=== PATIENT | female | born 1970 | race Caucasian/White ===

== ENCOUNTER → 2023-12-11 11:08 | Outpatient (REF) | payer BC, SELFPAY | LOC: WDC 11:08 | PROVIDERS: ATTENDING PHYSICIAN Obstetrics & Gynecology; FAMILY PHYSICIAN Nurse Practitioner Adult Health | DX: Z12.31 Encounter for screening mammogram for malignant neoplasm of breast (principal) | CPT/HCPCS: 77063; 77067 ==

== ENCOUNTER → 2024-07-10 20:14 | Outpatient (REF) | payer BC, SELFPAY | LOC: MRI 3T 20:14 | PROVIDERS: ATTENDING PHYSICIAN Obstetrics & Gynecology; FAMILY PHYSICIAN Family Medicine | DX: Z15.01 Genetic susceptibility to malignant neoplasm of breast (principal); Z80.3 Family history of malignant neoplasm of breast | CPT/HCPCS: 77049; A9585 ==

== ENCOUNTER 2024-08-11 11:23 | Outpatient (RCR) | payer SELFPAY | END 2024-08-11 23:59 | disposition home or self-care (01) | LOC: RPT 11:23 | PROVIDERS: ATTENDING PHYSICIAN Internal Medicine; FAMILY PHYSICIAN Family Medicine | DX: M62.838 Other muscle spasm (principal); R25.2 Cramp and spasm; Z73.6 Limitation of activities due to disability; K58.1 Irritable bowel syndrome with constipation | CPT/HCPCS: 97162; 97530 ==

== ENCOUNTER 2024-09-16 18:15 | Outpatient (RCR) | payer SELFPAY | END 2024-09-16 23:59 | disposition home or self-care (01) | LOC: RPT 18:15 | PROVIDERS: ATTENDING PHYSICIAN Internal Medicine; FAMILY PHYSICIAN Family Medicine | DX: M62.838 Other muscle spasm (principal); R25.2 Cramp and spasm; Z73.6 Limitation of activities due to disability; K58.1 Irritable bowel syndrome with constipation | CPT/HCPCS: 97110 ==

== ENCOUNTER 2024-10-20 12:39 | Outpatient (RCR) | payer SELFPAY | END 2024-10-20 23:59 | disposition home or self-care (01) | LOC: RPT 12:39 | PROVIDERS: ATTENDING PHYSICIAN Internal Medicine; FAMILY PHYSICIAN Family Medicine | DX: M62.838 Other muscle spasm (principal); R25.2 Cramp and spasm; Z73.6 Limitation of activities due to disability; K58.1 Irritable bowel syndrome with constipation | CPT/HCPCS: 97110 ==

== ENCOUNTER → 2025-01-08 18:53 | Outpatient (REF) | payer BC, SELFPAY | LOC: WDC 18:53 | PROVIDERS: ATTENDING PHYSICIAN Obstetrics & Gynecology; FAMILY PHYSICIAN Family Medicine | DX: Z12.31 Encounter for screening mammogram for malignant neoplasm of breast (principal); Z15.01 Genetic susceptibility to malignant neoplasm of breast; Z80.3 Family history of malignant neoplasm of breast | CPT/HCPCS: 77063; 77067 ==